=== PATIENT | male | born 1975 | race Caucasian/White ===

== ENCOUNTER 2022-10-31 15:44 | Inpatient (IN) | payer OTHER ==
[~2022-10-31] VITALS: Ht 190.5 cm; Wt 115.7 kg
[2022-10-31] MEDS ORDERED: LIPITOR20 MG PO (16:11)
[2022-10-31] MEDS ORDERED: SYNTHROID50 MCG PO (16:11)
[2022-10-31] MEDS ORDERED: CYMBALTA30 MG PO (16:12)
[2022-10-31] MEDS ORDERED: COZAAR50 MG PO (16:12)
[2022-11-03] MEDS ORDERED: B Complex CAPSULE PO (16:57)
[2022-11-03] MEDS ORDERED: Neurin-Sl Tablet Sl SL (16:57)
[2022-11-03] MEDS ORDERED: LEVOTHYROXINE50 MCG PO (16:57)
[2022-11-03] MEDS ORDERED: CYMBALTA30 MG PO (16:57)
[2022-11-03] MEDS ORDERED: HYDRODIURIL12.5 MG PO (16:57)
[2022-11-03] MEDS ORDERED: LIPITOR20 MG PO (16:57)
[2022-11-03] MEDS ORDERED: COZAAR50 MG PO (16:57)
== END 2022-11-03 19:02 | disposition home or self-care (01) | DRG 866 ==
LOC: ER 15:44 → SURH 19:08 → SEC-K 19:08 → SURH 20:05
PROVIDERS: ADMIT Internal Medicine; ATTEND Internal Medicine
PROC: BW40ZZZ Ultrasonography of Abdomen (ICD-10-PCS; principal; 2022-11-01)
DX: A90 Dengue fever [classical dengue] (principal); D69.6 Thrombocytopenia, unspecified; B34.9 Viral infection, unspecified; E03.9 Hypothyroidism, unspecified; D72.819 Decreased white blood cell count, unspecified; E78.5 Hyperlipidemia, unspecified; R10.84 Generalized abdominal pain; G47.33 Obstructive sleep apnea (adult) (pediatric); Z20.822 Contact with and (suspected) exposure to COVID-19